=== PATIENT | female | born 1965 | race Asian ===

== ENCOUNTER → 2018-01-06 11:58 | Outpatient (CLI) | payer OTHER, SELFPAY ==
--- NOTE | 2018-01-06 | DI.MRI.S_ITS ---
PROCEDURE: MR HEAD/BRAIN WO CON INDICATIONS: TENSION HEADACHE TECHNIQUE: Noncontrast axial T1 spin echo, axial T2 fast spin echo, sagittal and axial FLAIR, coronal T2 fast spin echo, axial gradient echo, axial diffusion and ADC through the brain. COMPARISON: [facility], MR, BRAIN WITH AND WITHOUT CONTRAS, 06/07/2007, 10:11. FINDINGS: Image quality: Diagnostic, with note made of motion artifact. CSF Spaces: Basal cisterns are patent. No extra-axial fluid collections. Ventricles are normal in size and shape. Brain: No intracranial masses or hemorrhage. Latif/white matter interface is normal. Brainstem appears normal. Diffusion-weighted images demonstrate no acute ischemic insult. No chronic ischemic insults. Normal intravascular flow voids are present. Skull and face: Calvarium has normal marrow signal. Orbits appear normal. Sinuses: Mucous retention cyst can be seen within the left maxillary sinus. Sinuses and mastoids are otherwise clear. IMPRESSION: No imaging explanation is found for this patient's presenting history of tension headache. Dictated by: Wilmer Vargas M.D. on 01/06/2018 at 11:42 Approved by: Wilmer Vargas M.D. on 01/06/2018 at 11:44
== END ==
PROVIDERS: Visit Provider Nurse Practitioner Family
DX: G44.209 Tension-type headache, unspecified, not intractable (principal)
CPT/HCPCS: 70551